=== PATIENT | male | born 1995 | race Two or more races ===

== ENCOUNTER 2023-10-12 13:59 | Emergency (ER) | payer OTHER ==
[~2023-10-12] VITALS: Ht 170.2 cm; Wt 83.9 kg
[2023-10-12] MEDS ORDERED: AZITHROMYCIN 500 MG TABLET PO ONE (15:15)
[2023-10-12] MEDS ORDERED: METHYLPREDNISOLONE SOD SUCC 125 MG VIAL IV ONE (15:15)
[2023-10-12] MEDS ORDERED: LEVALBUTEROL HCL 1.25 MG/3 ML SOLUTION IH SCH (15:15)
[2023-10-12] MEDS ORDERED: GUAIFENESIN/DEXTROMETHORPHAN 10ML BLIST.PACK PO ONE (15:15)
[2023-10-12 15:43] LABS: HEMATOCRIT 45.5 % (39.0-48.0); HEMOGLOBIN 15.7 g/dL (13-16.00); MEAN CELL VOLUME 85.4 fL (80.0-100.00); MEAN CORPUSCULAR HEMOGLOBIN 29.4 pg (27.00-32.0); MEAN CORPUSCULAR HGB CONC 34.4 g/dl (32.0-36.0); PLATELET COUNT 239 K/uL (150-450); RED BLOOD COUNT 5.32 M/uL (4.00-6.00); RED CELL DISTRIBUTION WIDTH 13.2 % (11.5-14.5)
[2023-10-12] MEDS ORDERED: ZITHROMAX500 MG PO (16:01)
[2023-10-12] MEDS ORDERED: TUSNEL LIQUID178 ML PO (16:01)
[2023-10-12] MEDS ORDERED: XOPENEX CO1.25 MG/0. IH (16:01)
== END 2023-10-12 16:09 | disposition home or self-care (01) ==
LOC: ER 14:00
PROVIDERS: General Practice
DX: J06.9 Acute upper respiratory infection, unspecified (principal); Z20.822 Contact with and (suspected) exposure to COVID-19

== ENCOUNTER 2023-12-05 21:14 | Emergency (ER) | payer OTHER ==
[~2023-12-05] VITALS: Ht 170.2 cm; Wt 81.6 kg
[~2023-12-05 21:14] MED LIST: TUSNEL LIQUID178 ML PO; XOPENEX CO1.25 MG/0. IH; ZITHROMAX500 MG PO
[2023-12-05] MEDS ORDERED: ONDANSETRON HCL 2 MG/ML VIAL IV ONE (22:15)
[2023-12-05] MEDS ORDERED: 0.9 % SODIUM CHLORIDE 1,000 ML IV ONE (22:15)
[2023-12-05] MEDS ORDERED: FAMOtidine 10 MG/ML (4ML VIAL) IV ONE (22:15)
[2023-12-05 23:26] LABS: HEMATOCRIT 47.1 % (39.0-48.0); HEMOGLOBIN 16.3 g/dL (13-16.00); MEAN CELL VOLUME 86.9 fL (80.0-100.00); MEAN CORPUSCULAR HGB CONC 34.6 g/dl (32.0-36.0); PLATELET COUNT 196 K/uL (150-450); RED BLOOD COUNT 5.42 M/uL (4.00-6.00); RED CELL DISTRIBUTION WIDTH 13.1 % (11.5-14.5)
[2023-12-05 23:41] LABS: ALBUMIN 4.1 gm/dL (3.4-5.0); BILIRUBIN TOTAL 1.17 mg/dL (0.3-1.2); CALCIUM 9.3 mg/dL (8.5-10.1); CREATININE SERUM 0.99 mg/dL (0.70-1.30); GFR 90.01; GLOBULINA 3.9 G/DL (2.4-3.5); POTASSIUM 4.18 mEq/L (3.5-5.1)
[2023-12-05] MEDS ORDERED: METRONIDAZOLE500 MG PO (23:52)
[2023-12-05] MEDS ORDERED: PEPCID AC20 MG PO (23:52)
[2023-12-05] MEDS ORDERED: ZOFRAN8 MG PO (23:52)
== END 2023-12-06 | disposition home or self-care (01) ==
LOC: ER 21:16
PROVIDERS: General Practice
DX: K29.70 Gastritis, unspecified, without bleeding (principal)
CPT/HCPCS: 36415; 96365; 99282; J2405; J3490; J7030